=== PATIENT | male | born 1960 | race Hispanic/Latino ===

== ENCOUNTER → 2024-03-25 07:15 | Outpatient (REF) | payer BC, SELFPAY | LOC: HWRAD 07:15 | PROVIDERS: ATTENDING PHYSICIAN Internal Medicine Gastroenterology; FAMILY PHYSICIAN Family Medicine | DX: K76.0 Fatty (change of) liver, not elsewhere classified (principal) | CPT/HCPCS: 76700 ==

== ENCOUNTER 2025-04-13 10:35 | Emergency (ER) | payer BC, SELFPAY ==
[2025-04-13 10:42] VITALS: BP 135/86
--- NOTE | 2025-04-13 11:04 | ED.GENMED ---
History of Present Illness
General
Chief Complaint: Abdominal Pain
Source: patient
Exam Limitations: none
Time Seen by Provider: 04/13/25 10:53
History of Present Illness
History of Present Illness:
64yoM with a history of hypertension, hyperlipidemia, and MGUS presenting for evaluation of abdominal pain. Symptoms have been ongoing for the past 2 days. He reports the pain in the left side of the abdomen which becomes sharp at times,
particularly with belching. Pain has been constant and is gradually worsening. He also reports fevers at home with Tmax of 102 which was last night. He is afebrile on arrival and has not had any antipyretics for approximately 12 hours. He called
his PCP regarding his symptoms and was told to go to the ED for evaluation. He is otherwise asymptomatic and denies any vomiting, dysuria, diarrhea, constipation, shortness of breath, URI symptoms. No prior abdominal surgeries.
Past History
Past History
ED Past Medical History: HTN, Hypercholesterolemia, Other (Sweet syndrome) and Other (Monoclonal gammopathy, PAF)
Social History
Tobacco: Non-smoker
Alcohol: None
Family History
Family History: Negative Diabetes, Hypertension or CAD
Phy Exam
General Physical Exam
General Presentation: well appearing and no apparent distress
General Skin: warm and dry
General Habitus: normal
General Mental: alert
ENT Exam
ENT Exam: normocephalic
Cardiovascular Exam
Cardiovascular Exam: regular rate/rhythm
Pulmonary Exam
Pulmonary Exam: lungs clear, no respiratory distress, no rales, no crackles, no rhonchi and no wheezing
Gastrointestinal Exam
Gastrointestinal Exam: soft, non distended and other (+Tenderness in LUQ/LLQ region. Abdomen soft, non-distended. No rebound or guarding.)
Neurological Exam
Neurological Exam: alert
[place] Coma Scale
Eye Opening: Spontaneous
Verbal Response: Oriented
Motor Response: Obeys Commands
GCS Total Score: 15
Skin Exam
Skin Exam: normal color and warm/dry
Psychiatric Exam
Psychiatric Exam: normal mood/affect
Course
Orders/Labs/Results
Orders:
Orders
04/13/25 11:04
CT Abd/pelvis W Iv Cont Urgent
Comment:
Reason For Exam: LLQ pain
0.9% Sodium Chloride 1000 ml [Nss] 1,000 ml IV BOLUS
04/13/25 11:25
Complete Blood Count/With Diff Urgent
Comprehensive Metabolic Panel Urgent
Lactate Level [Lactic Acid] Urgent
Lipase Urgent
Urinalysis Reflex To Culture Urgent
Date Specimen was Collected: 04/13/25
Time Specimen was Collected: 11:19
Urine Microscopic Reflex Cult Urgent
04/13/25 13:[address] Non Medication Order As Directed
Physician Order: PO challenge
Above order entered?: Yes
04/13/25 13:36
0.9% Sodium Chloride 1000 ml [Nss] 1,000 ml IV BOLUS
Abnormal Lab Results
04/13/25
11:25
Absolute Neuts (auto) 8.3 H 10^3/uL
(1.4-6.5)
Absolute Monos (auto) 0.7 H 10^3/uL
(0.1-0.6)
Neutrophils % 79.8 H %
(42.2-75.2)
Lymphocytes % 12.0 L %
(20.5-51.1)
Sodium 134 L mmol/L
(135-145)
Glucose 135 H mg/dl
(70-99)
Urine Ketones 1+ A
(Negative)
Ur Occult Blood Reflex 3+ A
(Negative)
Urine RBC 16-20 A /HPF
(0-2)
Urine Bacteria (Reflex) Few A
(Negative)
Urine Albumin (Reflex) 1+ A
(Neg - Trace)
04/13/25 11:25
04/13/25 11:25
Vital Signs
Initial and Last Documented VS:
Initial Vital Signs
Temp Pulse Resp BP Pulse Ox
98.1 F 95 16 135/86 97
04/13/25 10:42 04/13/25 10:42 04/13/25 10:42 04/13/25 10:42 04/13/25 10:42
Last Documented Vital Signs
Temp Pulse Resp BP Pulse Ox
98.1 F 84 20 130/70 99
04/13/25 10:42 04/13/25 14:39 04/13/25 14:39 04/13/25 14:39 04/13/25 14:39
MDM/Problems Addressed
Differential Diagnosis Includes:
64yoM here with L sided abd pain x 2-3 days. Had a fever at home last night but afebrile on arrival. He is well appearing in no distress. No signs of peritonitis on abdominal exam. Differential diagnosis includes but is not limited to:
diverticulitis, kidney stone, colitis
Initial ED plan: Check abdominal labs, lactate, UA, and CT abdomen. IV fluid bolus. He declines analgesics.
*Pulse Oximetry
SaO2: 97
Oxygen Mode of Delivery: Room air
Patient hypoxic: no
*Critical Care Note
Total Time (30-74mins, 75-104mins- exclusive of procedures): Not Applicable
Update Note
Update Note:
CT shows findings highly suggestive of pancreatitis. Labs unremarkable including normal white count, LFTs, and lipase. Patient comfortable on reassessment. He denies any history of pancreatitis. No reported alcohol use or weight loss. Case
discussed with gastroenterology who recommends discharge with outpatient MRCP/MRI in 4 weeks as long as he is able to tolerate p.o. intake. Patient reports that he has been eating and drinking normally and had breakfast this morning. He was given
applesauce here without any increasing pain or nausea. Patient feels comfortable for discharge. He received 2L NS bolus during ED stay. He follows with Dr. Hernandez as an outpatient and will f/u closely. Strict ED return precautions reviewed
including uncontrolled pain. Patient discharged in stable condition.
ED Attending Note
-
Portions of this chart may have been created with voice recognition software.� Occasional wrong word or��sound alike� substitutions may have occurred due to the inherent limitations of voice recognition software.
Discharge Plan
Departure
Patient Disposition: Home (Routine Discharge)
Date of Disposition: 04/13/25
Time of Disposition: 14:30
Patient with high blood pressure during this ER visit?: No
Discharge Problem:
Acute pancreatitis
Instructions: Acute pancreatitis
Prescriptions:
No Action
lisinopril 20 MG tablet
20 mg PO QPM
aspirin 81 MG tablet,delayed release (DR/EC)
81 mg PO DAILY
simvastatin 20 MG tablet
20 mg PO QPM
C,E,copper,zinc [id number] 1 CAP capsule
1 cap PO DAILY
Patient Comments:
50 mg-15unit 4.5mg-2.5 mg chewable
famotidine 20 MG tablet
20 mg PO BID Qty: 28 0RF
Rx Instructions:
Take 20 mg twice a day for 14 days
ascorbic acid (vitamin C) [Vitamin C] 500 MG tablet
1,000 mg PO BID Qty: 56 0RF
Rx Instructions:
Take 1,000 mg twice a day for 14 days
aspirin 81 MG tablet,chewable
81 mg PO DAILY Qty: 14 0RF
Rx Instructions:
Take 81 mg daily for 14 days
zinc sulfate 220 MG capsule
220 mg PO DAILY Qty: 14 0RF
Rx Instructions:
Take 220 mg daily for 14 days
cholecalciferol (vitamin D3) 1,000 UNITS tablet
2,000 units PO DAILY Qty: 28 0RF
Rx Instructions:
Take 2,000 units daily for 14 days
Referrals:
Ej Hernandez MD [Active, Gastroenterology]
Ezekiel Kincaid MD [Family Provider, Family Practice]
Activity Restrictions/Additional Instructions:
Drink plenty of fluids and stay hydrated. Eat a clear liquid diet until symptoms improve. You may take Tylenol as needed for pain but never take more than recommended on the bottle.
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 You will need an MRI of your abdomen in 1 month.
Return to the ER with any new or worsening symptoms including uncontrolled pain.
Interventions
Interventions:
*Risk Screen - Suicide Last Done: 04/13/25 10:45
*General Assessment Last Done: 04/13/25 11:20
*Neglect/Abuse Screening Last Done: 04/13/25 10:45
*Nursing Disposition Last Done: 04/13/25 14:44
TE-Sdgfzq-Fkedkfpywk Assessment Last Done: 04/13/25 11:20
Discharge Date and Time
Print Language: ESTONIAN
[2025-04-13] MEDS: NSS 1000 IV ×2 (11:25→13:40)
[2025-04-13 11:41] LABS: Hematocrit 42.0 % (39.0-52.0); Hemoglobin 14.4 g/dL (13.0-18.0); Mean Corp Hgb Conc. 34.3 g/dL (33.0-37.0); Mean Corpuscular Volume 87.5 fL (80.0-94.0); Nucleated Red Blood Cells % 0 % (-); Platelet Count 229 10^3/uL (130-400); Red Cell Dist. Width 13.1 % (11.5-14.5)
[2025-04-13 11:56] LABS: ALT (SGPT) 22 U/L (0-50); AST (SGOT) 20 U/L (17-59); Albumin 4.4 g/dl (3.5-5.0); Alkaline Phosphatase 92 U/L (38-126); Blood Urea Nitrogen 15 mg/dl (9-20); Calcium 9.4 mg/dl (8.4-10.2); Carbon Dioxide 25 mmol/L (22-30); Chloride 99 mmol/L (98-107); Glucose 135 mg/dl (70-99); Lipase 76 U/L (23-300); Potassium 3.7 mmol/L (3.5-5.1); Sodium 134 mmol/L (135-145); Total Protein 7.0 g/dl (6.3-8.2); eGFR > 60.00
[2025-04-13 12:15] LABS: Urine Character Clear (Clear)
[2025-04-13 12:32] LABS: Urine Red Blood Cell 16-20 /HPF (0-2); Urine Squamous Cell 0-2 /LPF (Few)
[2025-04-13 14:39] VITALS: BP 130/70
== END 2025-04-13 15:27 | disposition home or self-care (01) ==
LOC: EMR 10:35
PROVIDERS: Physician Assistant; EMERGENCY PHYSICIAN Emergency Medicine; FAMILY PHYSICIAN Family Medicine
DX: K85.90 Acute pancreatitis without necrosis or infection, unspecified (principal); I48.0 Paroxysmal atrial fibrillation; I10 Essential (primary) hypertension; E78.00 Pure hypercholesterolemia, unspecified; D47.2 Monoclonal gammopathy; Z79.82 Long term (current) use of aspirin
CPT/HCPCS: 99284; 96360; 96361; 74177; 80053; 81003; 81015; 83605; 83690; 85025; Q9967